=== PATIENT | female | born 2000 | race African-American/Black ===

== ENCOUNTER 2021-01-09 12:46 | Emergency (ER) | payer OTHER ==
[~2021-01-09] VITALS: Ht 160 cm; Wt 58.2 kg
[2021-01-09 12:49] VITALS: Ht 160 cm; Wt 58.2 kg
[2021-01-09] MEDS ORDERED: PREDNISONE50 MG PO (13:19)
[2021-01-09] MEDS ORDERED: AUVI-Q0.3 MG/0.3 IM (13:19)
[2021-01-09 15:07] VITALS: BP 118/72
== END 2021-01-09 15:08 | disposition home or self-care (01) ==
LOC: D.ER 12:46
DX: R21 Rash and other nonspecific skin eruption (principal); T78.40XA Allergy, unspecified, initial encounter